=== PATIENT | male | born 1950 | race Caucasian/White ===

== ENCOUNTER → 2016-11-07 | Day surgery (SDC) | payer MEDICARE ==
[~2016-11-07] MED LIST: ACETAMINOPHEN/HYDROcodone 325 MG/5 MG TAB ONE; IBUP600 PO; LACTATED RINGER'S 1000 ML INJ 1,000 ML ONE; LASI20TA PO; LORTA5 PO; LOSA25TA31 PO; MIDAZOLAM HCL 2 MG/2 ML VIAL ONE; MOBI15TA PO; PROPOFOL 200 MG/20 ML AMP IV ONE; TAMS0.4C67 PO; TRIAMCINOLONE ACETONIDE 40 MG/ML VIAL ONE; ceFAZolin INJ 1,000 MG VIAL ONE
--- NOTE | 2016-11-07 11:26 | TN ---
cc: CORONA VILA M.D. DATE OF SURGERY: November 07, 2016 PREOPERATIVE DIAGNOSIS Left knee internal derangement. POSTOPERATIVE DIAGNOSIS Left knee patellofemoral compartment moderate osteoarthritis, chondromalacia. PROCEDURE Left knee arthroscopic surgery - chondroplasty shaving articular surface patellofemoral compartment. SURGEON Corona Vila MD INTERIOR DESIGN PRINCIPAL MARLENE Spain SPECIMEN None. ESTIMATED BLOOD LOSS Minimum. COMPLICATIONS None. ANESTHESIA General. DRAIN None. TOURNIQUET TIME 13-minute at 250 mmHg. CONDITION Stable. PLAN OF ACTIVITY Per orders. PROCEDURE My veterinary assistant technician MARLENE Spain was present for the entire surgical case. She was medically necessary for the entire case because of the complexity of the case and to facilitate the performance of the procedure. The ACTIVITY DIRECTOR at the back table was not a skill set for this case to manipulate the instruments, e.g., the multiple different types of soft tissue retractors, trial implants, and permanent implants. The patient was brought into the operating room, had satisfactory anesthesia by the Department of Anesthesia. The left lower extremity was prepped and draped in the usual sterile manner. The extremity was exsanguinated by Kg wrap and tourniquet was inflated to 250 mmHg. Routine anterolateral and anterior medial portals were made. Introduction of the arthroscopic instrument was made into the knee joint. The knee was inflated with sterile Ringer's lactated solution. Examination of the knee revealed the following: The patient was found to have normal medial compartment. There is no evidence of medial meniscus tear, normal bearing surfaces of the medial femoral condyle and the medial tibial plateau. Anterior cruciate ligament was found to be intact, no evidence of any anterior cruciate ligament injury or trauma. Lateral compartment showed minimal degenerative changes involving the lateral meniscus. The lateral compartment bearing surface also within normal limits. Patellofemoral compartment revealed the patient to have moderate chondromalacia involving the patella, especially the lateral facet. A chondroplasty shaving of articular surfaces were performed. This was done with the shaver and with the meniscal rongeurs. The wound was then irrigated with copious amounts of sterile Ringer's lactated solution. The knee was injected with 1 cc of Kenalog 40. Arthroscopic instruments were removed. The tourniquet was deflated. The incisions were closed with 3-0 nylon suture. Sterile dressings were applied. The patient tolerated the procedure well and arrived in the recovery room in stable and satisfactory condition. MD JENNIFER Blackman/FARIHA /10:53 AM /10:58 AM
== END | disposition home or self-care (01) ==
LOC: ESDC 08:22
PROVIDERS: ATTEND Orthopaedic Surgery Orthopaedic Surgery of the Spine
DX: M17.12 Unilateral primary osteoarthritis, left knee (principal); M94.262 Chondromalacia, left knee
CPT/HCPCS: 01400; 29877; J0690; J2250; J3010; J3301; J7120

== ENCOUNTER 2017-04-20 09:37 | Emergency (ER) | payer MEDICARE ==
[~2017-04-20] VITALS: Ht 177.8 cm; Wt 110.0 kg
[~2017-04-20 09:37] MED LIST changes: -ACETAMINOPHEN/HYDROcodone 325 MG/5 MG TAB ONE; -LACTATED RINGER'S 1000 ML INJ 1,000 ML ONE; -MIDAZOLAM HCL 2 MG/2 ML VIAL ONE; -PROPOFOL 200 MG/20 ML AMP IV ONE; -TRIAMCINOLONE ACETONIDE 40 MG/ML VIAL ONE; -ceFAZolin INJ 1,000 MG VIAL ONE
[2017-04-20 09:42] VITALS: BP 146/87; PULSE 75; RESP 16; TEMP 97.4; O2SAT 96
[2017-04-20] MEDS ORDERED: TIMO0.255 RIGHT EYE (09:53)
[2017-04-20] MEDS ORDERED: FURO1TAB62 PO (09:53)
[2017-04-20] MEDS ORDERED: LOSA50TA PO (09:53)
[2017-04-20] MEDS ORDERED: MELO-1 PO (09:53)
[2017-04-20] MEDS ORDERED: LATA0.002 EACH EYE (09:54)
[2017-04-20] MEDS ORDERED: TIMO0.5S5 EACH EYE (09:54)
--- NOTE | 2017-04-20 10:07 | PD ---
HPI . Right flank pain Chief Complaint: Flank/Kidney Pain Time Seen by Provider: 09:55 Travel History International Travel<30 days: No Contact w/Intl Traveler<30days: No Traveled to known affect area: No History of Present Illness HPI Presents with about a 2 to three-day history of right flank pain. His pain has waxed and waned. He can range anywhere from a 2/10 to a 7/10. He has not noted any modifying factors. He states that it feels like previous kidney stone. He denies any associated symptoms such as diaphoresis, nausea or urinary tract symptoms. PFSH Past Medical History Arthritis: Yes Diminished Hearing: No Glaucoma: Yes Genitourinary: Yes (bladder stones) Hypertension: Yes Kidney Stones: Yes Influenza Vaccination: Yes Past Surgical History Appendectomy: Yes Cholecystectomy: Yes Other Surgery: Yes (removal of bladder stones) Social History Alcohol Use: Yes (occas beer) Tobacco Use: Yes (ecig hx of smoking cigs quit in 2008) Substance Use: No Allergies-Medications (Allergen,Severity, Reaction): Coded Allergies: No Known Allergies (Unverified , 04/20/17) Reported Meds & Prescriptions Reported Meds & Active Scripts Active Reported Timoptic Opth Drops (Timolol Opth Drops) 0.5 % Soln 1 Drop EACH EYE BID Latanoprost Opth Drops (Latanoprost) 0.005% Drops 1 Drop EACH EYE HS Refrigerate until opened. Meloxicam 15 Mg Tab 15 Mg PO DAILY Losartan (Losartan Potassium) 50 Mg Tab 50 Mg PO DAILY Lasix (Furosemide) 20 Mg Tab 20 Mg PO DAILY Review of Systems Except as stated in HPI: all other systems reviewed are Neg General / Constitutional: No: Fever, Chills Gastrointestinal: No: Nausea, Vomiting, Diarrhea Genitourinary: Positive: Flank Pain, No: Urgency, Frequency, Dysuria, Hematuria Physical Exam Narrative GENERAL: Awake and alert and in no acute distress. SKIN: Warm and dry. HEAD: Atraumatic. Normocephalic. EYES: Pupils equal and round. ENT: No nasal bleeding or discharge. Mucous membranes pink and moist. NECK: Trachea midline. CARDIOVASCULAR: Regular rate and rhythm. RESPIRATORY: No accessory muscle use. GASTROINTESTINAL: Abdomen soft. No CVA tenderness. No abdominal tenderness. Normal bowel sounds. MUSCULOSKELETAL: No obvious deformities. No edema. NEUROLOGICAL: Awake and alert. No obvious cranial nerve deficits. Motor grossly within normal limits. Normal speech. PSYCHIATRIC: Appropriate mood and affect; insight and judgment normal. Data Data Last Documented VS Vital Signs Date Time Temp Pulse Resp B/P (MAP) Pulse Ox O2 Delivery O2 Flow Rate FiO2 04/20/17 10:34 77 18 155/88 (110) 100 Room Air 04/20/17 09:42 97.4 Orders Orders Ua Includes Microscopic (04/20/17 10:01) Ct Abd/Pel W/O Iv Contrast (04/20/17 10:01) Ondansetron Inj (Zofran Inj) (04/20/17 10:15) Sodium Chloride 0.9% Flush (Ns Flush) (04/20/17 10:15) Morphine Inj (Morphine Inj) (04/20/17 10:15) Sodium Chlor 0.9% 1000 Ml Inj (Ns 1000 M (04/20/17 10:15) Labs Laboratory Tests Test 04/20/17 10:00 Urine Collection Type CLEAN CATCH Urine Color STRAW Urine Turbidity CLEAR Urine pH 5.0 Urine Specific [place] 1.009 Urine Protein NEG mg/dL Urine Glucose (UA) NEG mg/dL Urine Ketones NEG mg/dL Urine Occult Blood NEG Urine Nitrite NEG Urine Bilirubin NEG Urine Leukocyte Esterase NEG Urine Squamous Epithelial Cells 0-5 /hpf MDM Medical Decision Making Medical Screen Exam Complete: Yes Emergency Medical Condition: Yes Medical Record Reviewed: Yes (patient was seen here in March 2016 with similar symptoms. He was found to have a 5 mm proximal right ureteral stone with associated hydroureter ureter and hydronephrosis.) Differential Diagnosis Differential diagnosis of flank pain includes but is not limited to kidney stone , pyelonephritis, musculoskeletal pain, PE Narrative Course Patient presents with a 2-3 day history of flank pain which feels similar to previous kidney colic. I suspect that he has a kidney stone again today. IV access has been obtained. He will be given morphine and Zofran. He will also be given a fluid bolus. UA and CT are pending. UA is neg. CT>>The right kidney is significant for a punctate nonobstructing stone identified within the lower pole. The previously noted right-sided ureteral stone is no longer present and the dilation of the right ureter has completely resolved. The left kidney is significant for a small hyperdense cyst. No evidence of hydronephrosis. The etiology of this patient's flank pain is undetermined. However, no significant etiology is suspected. The history, exam, diagnostic testing, and current condition do not suggest any significant pathology to warrant further testing, continued ED treatment, admission, or surgical evaluation at this point. The patient's condition is stable and appropriate for discharge. Diagnosis Primary Impression: Right flank pain Patient Instructions: General Instructions, Narcotic given in the ED Med/Other Pt SpecificInfo: Prescription(s) given Scripts Cyclobenzaprine (Flexeril) 10 Mg Tab 10 MG PO TID for Muscle Spasm, #90 TAB 0 Refills Prov: Elly Martines MD 04/20/17 Tramadol (Tramadol) 50 Mg Tab 50 MG PO Q4H Y for PAIN, #12 TAB 0 Refills Prov: Elly Martines MD 04/20/17 Disposition: 01 DISCHARGE HOME Condition: Stable Elly Martines MD Apr 20, 2017 10:07
[2017-04-20] MEDS ORDERED: ONDANSETRON HCL 4 MG/2 ML VIAL IVP ONE (10:15)
[2017-04-20] MEDS ORDERED: SODIUM CHLOR 0.9% 1000 ML INJ 1,000 ML IV SCH (10:15)
[2017-04-20] MEDS ORDERED: SODIUM CHLORIDE 0.9% FLUSH 10 ML FLUSH IVF PRN (10:15)
[2017-04-20] MEDS ORDERED: MORPHINE SULFATE 4 MG/ML INJ IV ONE (10:15)
[2017-04-20 10:31] LABS: BLOOD, URINE NEG (NEG); GLUCOSE,URINE NEG (NEG); KETONE, URINE NEG (NEG); METHOD OF COLLECTION CLEAN CATCH; NITRITE,URINE NEG (NEG)
[2017-04-20 10:32] LABS: URINE COLOR STRAW (YELLW/STRAW)
[2017-04-20 10:34] VITALS: BP 155/88; PULSE 77; RESP 18; O2SAT 100
[2017-04-20 10:35] LABS: SQUAMOUS EPITHELIAL CELL URINE 0-5 /hpf (0-5)
--- NOTE | 2017-04-20 10:36 | RADRPT ---
EXAM DATE/TIME: 04/20/2017 10:23 [facility] COMPARISON: CT ABDOMEN & PELVIS W/O CONTRAST, March 27, 2016, 8:23. INDICATIONS : Right abdominal pain. Evaluate for renal calculi. ORAL CONTRAST: No oral contrast ingested. RADIATION DOSE: 24.78 CTDIvol (mGy) MEDICAL HISTORY : Hypertension. Renal calculi. SURGICAL HISTORY : Appendectomy. Cholecystectomy. ENCOUNTER: Initial ACUITY: 2 days PAIN SCALE: 5/10 LOCATION: Right lower quadrant TECHNIQUE: Volumetric scanning of the abdomen and pelvis was performed. Using automated exposure control and ad justment of the mA and/or kV according to patient size, radiation dose was kept as low as reasonably achievable to obtain optimal diagnostic quality images. DICOM format image data is available electro nically for review and comparison. FINDINGS: LOWER LUNGS: There is persistent atelectasis identified within the lung bases. LIVER: Homogeneous density without lesion. There is no dilation of the biliary tree. The patient is status post prior cholecystectomy. SPLEEN: Normal size without lesion. PANCREAS: Within normal limits. KIDNEYS: The right kidney is significant for a punctate nonobstructing stone identified within the lower pole. The previously noted right-sided ureteral stone is no longer present and the dilation of the right u reter has completely resolved. The left kidney is significant for a small hyperdense cyst. No evidenc e of hydronephrosis. ADRENAL GLANDS: Within normal limits. VASCULAR: Scattered atherosclerosis. No evidence of aneurysm. BOWEL/MESENTERY: The stomach, small bowel, and colon demonstrate no acute abnormality. There is no free intraperitone al air or fluid. ABDOMINAL WALL: Within normal limits. RETROPERITONEUM: There is no lymphadenopathy. BLADDER: No wall thickening or mass. REPRODUCTIVE: Prostate is normal size. There is a stable prosthetic calcification present. INGUINAL: There is no lymphadenopathy or hernia. MUSCULOSKELETAL: Within normal limits for patient age. CONCLUSION: Interval passage of a right-sided ureteral stone. There is a residual small right-sided renal stone p resent. No evidence of hydronephrosis.. Radha Reynolds MD on April 20, 2017 at 10:30 Board Certified Radiologist. This report was verified electronically.
[2017-04-20] MEDS ORDERED: CYCL1TAB29 PO (10:44)
[2017-04-20] MEDS ORDERED: TRAM50TA PO (10:44)
[2017-04-20] MEDS ORDERED: TYLETAB34 PO (10:49)
== END 2017-04-20 10:54 | disposition home or self-care (01) ==
LOC: PHED 09:37
DX: R10.9 Unspecified abdominal pain (principal); Z87.891 Personal history of nicotine dependence; M19.90 Unspecified osteoarthritis, unspecified site; I10 Essential (primary) hypertension; Z87.442 Personal history of urinary calculi
CPT/HCPCS: 74176; 81001; 96374; 96375; 99285; J2270; J2405; J7030

== ENCOUNTER → 2017-10-22 | Outpatient (CLI) | payer MEDICARE ==
[~2017-10-22] MED LIST changes: +CYCL10TA PO; +FURO1TAB62 PO; -IBUP600 PO; -LASI20TA PO; +LATA0.002 EACH EYE; -LORTA5 PO; -LOSA25TA31 PO; +LOSA50TA PO; +MELO15TA20 PO; -MOBI15TA PO; -TAMS0.4C67 PO; +TIMO0.5S5 EACH EYE; +TYLETAB34 PO
--- NOTE | 2017-10-23 09:50 | RSPPFT ---
DATE OF PROCEDURE: 10/22/17 COMMENTS: VOLUMES DYNAMIC: FVC mildly reduced; FEV1 moderately reduced. STATIC: TLC, FRC mildly reduced; RV normal. FLOWS: FEV1% mildly reduced; FEF 25-75 severely reduced. DIFFUSION: Moderately reduced. FLOW VOLUME LOOP: Pattern of variable intrathoracic airways obstruction with mild restriction. IMPRESSION: Mild to moderate obstructive ventilatory defect with co-existing mild restrictive defect and a moderate reduction in diffusion. Airways resistance is increased. There is minimal improvement post-bronchodilator.
== END ==
LOC: HRSP 12:24
PROVIDERS: ATTEND Internal Medicine
DX: J44.9 Chronic obstructive pulmonary disease, unspecified (principal)
CPT/HCPCS: 94060; 94618; 94726; 94729; 95012

== ENCOUNTER 2018-06-29 15:34 | Inpatient (IN) ==
[2018-06-29 18:10] LABS: Baso # (Auto) 0.2 th/mm3 (0.0-0.2); Baso % (Auto) 1.9 % (0.0-2.0); Eos # (Auto) 0.2 th/mm3 (0.0-0.4); Eos % (Auto) 1.4 % (0.0-4.0); Hematocrit 41.2 % (39.0-51.0); Hemoglobin 14.1 gm/dL (13.0-17.0); Lymph # (Auto) 1.2 th/mm3 (1.0-4.8); Lymph % (Auto) 10.4 % (9.0-44.0); Mean Corpuscular HGB Conc 34.3 % (32.0-36.0); Mean Corpuscular Hemoglobin 31.7 pg (27.0-34.0); Mean Corpuscular Volume 92.2 fL (80.0-100.0); Mean Platelet Volume 8.4 fL (7.0-11.0); Mono # (Auto) 0.9 th/mm3 (0.0-0.9); Mono % (Auto) 7.7 % (0.0-8.0); Neut # (Auto) 8.6 th/mm3 (1.8-7.7); Neut % (Auto) 78.6 % (16.0-70.0); Platelet Count 276 th/mm3 (150-450); Red Blood Count 4.46 mil/mm3 (4.50-5.90); Red Cell Distribution Width 13.1 % (11.6-17.2); White Blood Count 11.1 th/mm3 (4.0-11.0)
[2018-06-29 18:18] LABS: Chloride 101 meq/L (98-107); Potassium 4.3 meq/L (3.5-5.1); Sodium 135 meq/L (136-145)
[2018-06-29 18:21] LABS: Albumin 3.5 g/dL (3.4-5.0); Anion Gap 8 meq/L (5-15); Calcium 9.7 mg/dL (8.5-10.1); Carbon Dioxide 25.8 meq/L (21.0-32.0); Glucose,Random 98 mg/dL (74-106); Prothrombin Time 10.4 sec (9.8-11.6)
[2018-06-29 18:22] LABS: Blood Urea Nitrogen 21 mg/dL (7-18)
[2018-06-29] MEDS ORDERED: Acetaminophen 325 MG Tablet PO ONE (18:22)
[2018-06-29 18:24] LABS: Alanine Aminotransferase 43 U/L (12-78)
[2018-06-29] MEDS ORDERED: Vancomycin Inj 1,000 MG in Sodium Chlor 0.9% Inj 250 ML IV.SIG ONE (18:24)
[2018-06-29 18:25] LABS: Aspartate Aminotransferase 36 U/L (15-37); Glomerular Filtration Rate 75 mL/min (>89)
[2018-06-29 18:26] LABS: Total Protein 8.3 g/dL (6.4-8.2)
[2018-06-29 18:27] LABS: Alkaline Phosphatase 98 U/L (45-117)
[2018-06-29] MEDS ORDERED: Tetanus/Diphtheria Toxoid Adult Vaccine Inj 0.5 ML Vial IM ONE (18:38)
--- NOTE | 2018-06-29 18:38 | ED ---
HPI General Chief complaint: Skin/Abscess/Foreign Body Stated complaint: boil on left buttocks Time Seen by Provider: 06/29/18 17:53 Source: patient Mode of arrival: ambulatory Limitations: no limitations History of Present Illness HPI narrative: Patient is a 67-year-old male who presents to the emergency room with complaints of left-sided buttocks abscess. Patient reports that 2 days ago , he noticed a bump on his left buttocks, patient reports that he has been having fevers and chills with the symptoms. Patient reports that today, he noticed that the bump got much bigger and has been draining some fluid. Reports low grade fevers. Patient reports that his tetanus is not up to date. Related Data Home Medications Medication Instructions Recorded Confirmed furosemide [Lasix] 20 mg PO DAILY 06/29/18 06/29/18 latanoprost 1 drp OPHTHALMIC (EYE) QPM 06/29/18 06/29/18 losartan 50 mg PO DAILY 06/29/18 06/29/18 meloxicam 15 mg PO DAILY 06/29/18 06/29/18 red yeast rice 1,200 mg PO DAILY 06/29/18 06/29/18 vitamins A,C,U-njsw-nurbcd 2 tab PO BID 06/29/18 06/29/18 [PreserVision AREDS] Allergies Allergy/AdvReac Type Severity Reaction Status Date / Time tramadol Allergy Severe Restlessnes Verified 06/29/18 15:53 s Review of Systems ROS: all other systems reviewed are negative [facility] Medical History Medical History Cataract (Acute) Glaucoma (Acute) HTN (hypertension) (Acute) Hemorrhoids (Acute) Surgical History Surgical History History of cholecystectomy (Acute) Previous back surgery (Acute) Social History Social History Substance History: No History of Abuse Smoking Status: Former smoker Tobacco Type: E-Cigarettes How Often Do You Have a Drink Containing Alcohol: Never Recent Travel in [facility] within the Last 8 Weeks: No Recent Out of Country Travel within the Last 8 Weeks: No Immunization History Tetanus Immunization: Unsure Exam Narrative Exam Narrative: GENERAL: Moderate distress SKIN: Focused skin assessment warm/dry. HEAD: Atraumatic. Normocephalic. EYES: Pupils equal and round. No scleral icterus. No injection or drainage. ENT: No nasal bleeding or discharge. Mucous membranes pink and moist. NECK: Trachea midline. No JVD. CARDIOVASCULAR: Regular rate and rhythm. No murmur appreciated. RESPIRATORY: No accessory muscle use. Clear to auscultation. Breath sounds equal bilaterally. GASTROINTESTINAL: Abdomen soft, non-tender, nondistended. Hepatic and splenic margins not palpable. Exam performed with RN at bedside, patient with an 8x12cm non fluctuant abscess with cellulitis to left medial buttocks MUSCULOSKELETAL: No obvious deformities. No clubbing. No cyanosis. No edema. NEUROLOGICAL: Awake and alert. No obvious cranial nerve deficits. Motor grossly within normal limits. Normal speech. PSYCHIATRIC: Appropriate mood and affect; insight and judgment normal. Course Initial Documented Vital Signs Temperature 98.8 F 06/29/18 15:50 Pulse Rate 88 06/29/18 15:50 Respiratory Rate 18 06/29/18 15:50 Blood Pressure 157/82 H 06/29/18 15:50 Pulse Oximetry 98 06/29/18 15:50 Last Documented Vital Signs Temperature 100.4 F H 06/29/18 17:18 Pulse Rate 97 H 06/29/18 17:18 Respiratory Rate 18 06/29/18 15:50 Blood Pressure 145/86 H 06/29/18 17:18 Pulse Oximetry 98 06/29/18 17:18 Sign Out Sign Out Data: Patient Sign Out occurred on 06/29/18 at 19:51. Patient's care was discussed, and care was transferred from Elizabeth Marrero to Lucy Mckay MD. Sign Out Comment: patient pending ct as well as labs and admission Last updated by Elizabeth Marrero at 06/29/18 19:09 Post-Handoff Eval: Accepted in transfer of care from Dr. Marrero Medical Decision Making MDM Narrative Medical decision making narrative: During the course of the patients emergency department visit, the patients history, examination, and differential diagnosis were reviewed with the patient. The patient was placed on a patient monitor with oximetry and frequent blood pressure monitoring. The patient had an IV access obtained and blood work sent for analysis. The patient was initially provided IVF, IV Levaquin, IV vancomycin as well as IV Flagyl The patients laboratory studies were reviewed and remarkable for: WBC 11.1, hemoglobin 14.1, hematocrit 41.2, platelets 276 35, potassium 4.3, chloride 101, BUN 21, creatinine 0.99, glucose 98 Lactic acid is 1.6 Patient accepted in transfer of care for follow up pending CT and planned admission;CT resulted no abscess, findings c/w cellulitis --call placed to Dr Jordan accepts for admission for sepsis cellulitis ongoing IV antibiotics Medical Screen Exam Complete: Yes Emergency Medical Condition: Yes Differential Diagnosis Differential Diagnosis: Perirectal abscess, abscess with cellulitis, sepsis Medical Records Medical records reviewed: Yes I reviewed the patient's medical records. Lab Data Lab results reviewed: Yes I reviewed the patient's lab results. Result diagrams: 06/29/18 17:41 06/29/18 17:41 Lab Results 06/29/18 06/29/18 06/29/18 Range/Units 17:41 17:41 17:41 CBC w Diff Slide review pending WBC 11.1 H (4.0-11.0) th/mm3 RBC 4.46 L (4.50-5.90) mil/mm3 Hgb 14.1 (13.0-17.0) gm/dL Hct 41.2 (39.0-51.0) % MCV 92.2 (80.0-100.0) fL MCH 31.7 (27.0-34.0) pg MCHC 34.3 (32.0-36.0) % RDW 13.1 (11.6-17.2) % Plt Count 276 (150-450) th/mm3 MPV 8.4 (7.0-11.0) fL Neut % (Auto) 78.6 H (16.0-70.0) % Lymph % (Auto) 10.4 (9.0-44.0) % Dukes % (Auto) 7.7 (0.0-8.0) % Eos % (Auto) 1.4 (0.0-4.0) % Baso % (Auto) 1.9 (0.0-2.0) % Neut # (Auto) 8.6 H (1.8-7.7) th/mm3 Lymph # (Auto) 1.2 (1.0-4.8) th/mm3 Dukes # (Auto) 0.9 (0.0-0.9) th/mm3 Eos # (Auto) 0.2 (0.0-0.4) th/mm3 Baso # (Auto) 0.2 (0.0-0.2) th/mm3 WBC Differential . Diff Scan Auto diff confirmed Differential Comment . Platelet Estimate Normal (Normal) Platelet Morphology Normal (Normal) PT 10.4 (9.8-11.6) sec INR 1.0 Ratio Sodium 135 L (136-145) meq/L Potassium 4.3 (3.5-5.1) meq/L Chloride 101 (98-107) meq/L Carbon Dioxide 25.8 (21.0-32.0) meq/L Anion Gap 8 (5-15) meq/L BUN 21 H (7-18) mg/dL Creatinine 0.99 (0.60-1.30) mg/dL Estimated GFR 75 L (>89) mL/min Random Glucose 98 (74-106) mg/dL Lactic Acid (0.4-2.0) mmol/L Calcium 9.7 (8.5-10.1) mg/dL Total Bilirubin 0.5 (0.2-1.0) mg/dL AST 36 (15-37) U/L ALT 43 (12-78) U/L Alkaline Phosphatase 98 (45-117) U/L Total Protein 8.3 H (6.4-8.2) g/dL Albumin 3.5 (3.4-5.0) g/dL Urine Color (Yellw/Straw) Urine Clarity (Clear) Urine pH (5.0-8.5) Ur Specific [place] (1.002-1.035) Urine Protein (Neg-Trace) mg/dL Urine Glucose (UA) (Negative) mg/dL Urine Ketones (Negative) mg/dL Urine Occult Blood (Negative) Urine Nitrate (Negative) Urine Bilirubin (Negative) Urine Urobilinogen (Less than 2) mg/dL Ur Leukocyte Esterase (Negative) Urine RBC (0-3) /hpf Urine WBC (0-5) /hpf Ur Squamous Epith Cells (0-5) /hpf Calcium Oxalate Crystal (None) /hpf Urine Mucus (Occasional) /lpf Micro UA Comment Ur Microscopic Review Urine Culture Comments 06/29/18 06/29/18 Range/Units 17:41 19:00 CBC w Diff WBC (4.0-11.0) th/mm3 RBC (4.50-5.90) mil/mm3 Hgb (13.0-17.0) gm/dL Hct (39.0-51.0) % MCV (80.0-100.0) fL MCH (27.0-34.0) pg MCHC (32.0-36.0) % RDW (11.6-17.2) % Plt Count (150-450) th/mm3 MPV (7.0-11.0) fL Neut % (Auto) (16.0-70.0) % Lymph % (Auto) (9.0-44.0) % Dukes % (Auto) (0.0-8.0) % Eos % (Auto) (0.0-4.0) % Baso % (Auto) (0.0-2.0) % Neut # (Auto) (1.8-7.7) th/mm3 Lymph # (Auto) (1.0-4.8) th/mm3 Dukes # (Auto) (0.0-0.9) th/mm3 Eos # (Auto) (0.0-0.4) th/mm3 Baso # (Auto) (0.0-0.2) th/mm3 WBC Differential Diff Scan Differential Comment Platelet Estimate (Normal) Platelet Morphology (Normal) PT (9.8-11.6) sec INR Ratio Sodium (136-145) meq/L Potassium (3.5-5.1) meq/L Chloride (98-107) meq/L Carbon Dioxide (21.0-32.0) meq/L Anion Gap (5-15) meq/L BUN (7-18) mg/dL Creatinine (0.60-1.30) mg/dL Estimated GFR (>89) mL/min Random Glucose (74-106) mg/dL Lactic Acid 1.6 (0.4-2.0) mmol/L Calcium (8.5-10.1) mg/dL Total Bilirubin (0.2-1.0) mg/dL AST (15-37) U/L ALT (12-78) U/L Alkaline Phosphatase (45-117) U/L Total Protein (6.4-8.2) g/dL Albumin (3.4-5.0) g/dL Urine Color Yellow (Yellw/Straw) Urine Clarity Clear (Clear) Urine pH 6.0 (5.0-8.5) Ur Specific [place] 1.025 (1.002-1.035) Urine Protein Trace (Neg-Trace) mg/dL Urine Glucose (UA) Negative (Negative) mg/dL Urine Ketones Negative (Negative) mg/dL Urine Occult Blood Negative (Negative) Urine Nitrate Negative (Negative) Urine Bilirubin Negative (Negative) Urine Urobilinogen 0.2 (Less than 2) mg/dL Ur Leukocyte Esterase Negative (Negative) Urine RBC 0-3 (0-3) /hpf Urine WBC 0-5 (0-5) /hpf Ur Squamous Epith Cells 0-5 (0-5) /hpf Calcium Oxalate Crystal Few H (None) /hpf Urine Mucus Moderate H (Occasional) /lpf Micro UA Comment Culture not ind Ur Microscopic Review Microscopic reviewed Urine Culture Comments Culture not ind Imaging Data Radiologist's impression: Pelvis CT 06/29/18 18:22 CONCLUSION: Left buttock cellulitis without abscess. Discharge Plan Discharge Disposition Patient Disposition: 30 Still Patient Discharge Condition Condition: Stable Discharge Details Diagnosis: Cellulitis and abscess of left lower extremity Physicians Team ED Provider: Lucy Mckay Primary Care Provider: William Durán Attending Provider: Delon Jordan ED Status: Admitted Patient
[2018-06-29 18:41] LABS: Platelet Estimate Normal (Normal); Platelet Morphology Normal (Normal)
[2018-06-29] MEDS ORDERED: Morphine Inj 4 MG/ML Vial IV.PUSH ONE (18:52)
[2018-06-29 19:27] LABS: Bilirubin,Urine Negative (Negative); Clarity,Urine Clear (Clear); Color,Urine Yellow (Yellw/Straw); Glucose,Urine (UA) Negative (Negative); Leukocyte Esterase,Urine Negative (Negative); Nitrite,Urine Negative (Negative); Specific Gravity,Urine 1.025 (1.002-1.035); Urobilinogen,Urine 0.2 mg/dL (Less than 2)
--- NOTE | 2018-06-29 19:28 | CT ---
EXAM DATE: 06/29/2018 7:08 PM EST AGE/SEX: 67 years / Male INDICATIONS: Left buttock abscess. CLINICAL DATA: This is the patient's initial encounter. Patient reports that signs and symptoms have been present for 2 days and indicates a pain score of 10/10. MEDICAL/SURGICAL HISTORY: Hypertension. Cholecystectomy. Back surgery. RADIATION DOSE: 20.90 CTDI (mGy) COMPARISON: [facility], CT ABDOMEN & PELVIS W/O CONTRAST, 04/20/2017. . TECHNIQUE: Multiple contiguous helical axial images were obtained through pelvis following bolus inf usion of 75 ml Omnipaque 350 (iohexol) nonionic water-soluble contrast as a single exam dose. Imag es were obtained using multiple row detector helical technique. . Using automated exposure control an d adjustment of the mA and/or kV according to patient size, radiation dose was kept as low as reasona apolonia achievable to obtain optimal diagnostic quality images. DICOM format image data is available henri ctronically for review and comparison. FINDINGS: Broad area of subcutaneous edema involves the left buttock, primarily medially. There is thickening a nd edema of the overlying skin. No organized or drainable fluid is demonstrated. No acute abnormalities are demonstrated in the pelvic cavity. Diverticulosis is seen of the sigmoid c olon without diverticulitis. The bony pelvis is intact and has normal morphology. 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 CONCLUSION: Left buttock cellulitis without abscess. Electronically signed by: Benny Edouard MD 06/29/2018 7:27 PM EST
[2018-06-29 19:35] LABS: Calcium Oxalate Crystals,Urine Few /hpf; Mucus,Urine Moderate /lpf (Occasional); RBC,Urine 0-3 /hpf (0-3); Squamous Epithelial Cell,Urine 0-5 /hpf (0-5); WBC,Urine 0-5 /hpf (0-5)
[2018-06-29] MEDS ORDERED: Bisacodyl 10 MG Supp RECTAL PRN (19:42)
[2018-06-29] MEDS ORDERED: Vancomycin Consult Pharmacy OTHER PRN (20:00)
[2018-06-29] MEDS ORDERED: Morphine Sulfate Inj 2 MG/ML Vial IV.PUSH PRN (21:49)
[2018-06-29] MEDS: Heparin - SQ 10,000 UNITS/ML Vial SQ SCH (22:24)
[2018-06-29] MEDS: Vancomycin Inj 2,000 MG in Sodium Chlor 0.9% Inj 500 ML IV.SIG SCH (22:25)
[2018-06-29] MEDS: Latanoprost 0.005% Opth Drops 2.5 ML Bottle EACH EYE SCH (22:25)
[2018-06-30 06:50] LABS: Baso % (Auto) 0.5 % (0.0-2.0); Eos # (Auto) 0.1 th/mm3 (0.0-0.4); Eos % (Auto) 1.8 % (0.0-4.0); Hematocrit 36.2 % (39.0-51.0); Hemoglobin 11.9 gm/dL (13.0-17.0); Lymph # (Auto) 0.7 th/mm3 (1.0-4.8); Lymph % (Auto) 8.9 % (9.0-44.0); Mean Corpuscular HGB Conc 32.8 % (32.0-36.0); Mean Corpuscular Hemoglobin 31.4 pg (27.0-34.0); Mean Corpuscular Volume 95.8 fL (80.0-100.0); Mean Platelet Volume 8.3 fL (7.0-11.0); Mono # (Auto) 0.7 th/mm3 (0.0-0.9); Mono % (Auto) 8.7 % (0.0-8.0); Neut # (Auto) 6.5 th/mm3 (1.8-7.7); Neut % (Auto) 80.1 % (16.0-70.0); Platelet Count 227 th/mm3 (150-450); Red Blood Count 3.78 mil/mm3 (4.50-5.90); Red Cell Distribution Width 12.7 % (11.6-17.2)
[2018-06-30 06:58] LABS: Chloride 104 meq/L (98-107); Potassium 3.9 meq/L (3.5-5.1); Sodium 139 meq/L (136-145)
[2018-06-30 07:35] LABS: Alanine Aminotransferase 229 U/L (12-78); Albumin 2.7 g/dL (3.4-5.0); Alkaline Phosphatase 119 U/L (45-117); Anion Gap 7 meq/L (5-15); Aspartate Aminotransferase 165 U/L (15-37); Blood Urea Nitrogen 15 mg/dL (7-18); Calcium 9.1 mg/dL (8.5-10.1); Carbon Dioxide 27.6 meq/L (21.0-32.0); Glomerular Filtration Rate Greater Than 89 mL/min (>89); Glucose,Random 132 mg/dL (74-106); Total Protein 6.4 g/dL (6.4-8.2)
--- NOTE | 2018-06-30 08:16 | P.HP ---
History of Present Illness Primary Care Physician: William Durán MD Chief Complaint: Left buttock area abscess, pain History of Present Illness: Mr. Pedro is a pleasant 67-year-old male with a history of hypertension who presented to the emergency department on 06/29/2018 due to left- sided buttock abscess, swelling. Patient reports onset of his symptoms on 2017. He reports fever around 100 F and chills as well. He did notice some drainage at home. Denies any chest pain, shortness of breath, abdominal pain, cough. Denies any changes in bowel or bladder habits. Past medical history: Hypertension, glaucoma, hemorrhoids, cataract Past surgical history: Cataract surgery, cholecystectomy, kidney stone removal Social history: Patient uses E cigarettes and denies using alcohol or illicit drugs. Family history: Mother had breast cancer. Inpatient Certification: I certify that the inpatient services were ordered in accordance with Medicare regulations governing the order. This includes certification that hospital inpatient services are reasonable and necessary and in the case of services not specified as inpatient-only under 42 CFR 419.22(n), that they are appropriately provided as inpatient services in accordance to with the 2-midnight benchmark under 43 CFR 412.3(e) Estimated Total Length of Stay (Days): 3 Plans for Post Hospital Care: Not yet determined Review of Systems All other systems reviewed negative except as stated in [facility] - History History Provided By: Patient - Medical History Medical History: Medical History (Last Reviewed 06/30/18 @ 09:31 by Shashi Jansen DO) Cataract Glaucoma HTN (hypertension) Hemorrhoids - Surgical History Surgical History: Surgical History (Last Reviewed 06/30/18 @ 09:31 by Shashi Jansen DO) History of cholecystectomy Previous back surgery - Social History I have reviewed the patient's Social History: Yes - Tobacco History Second Hand Smoke Exposure: No Tobacco Use In Past 30 Days: Yes Smoking Status: Former smoker Tobacco Type: E-Cigarettes - Alcohol History How Often Do You Have a Drink Containing Alcohol: Never - Substance Use History Substance History: No History of Abuse - Travel History Recent Travel in the [place] Within the Last 8 Weeks: No Recent Travel Out of the Country Within the Last 8 Weeks: No - Immunization History Tetanus Immunization: Unsure Hx Influenza Vaccine This Season: Yes Medications and Allergies Active Medications: Active Medications Al Hydroxide/Mg Hydroxide (Milk Of Roselyn Liq) 30 ml PO Q12H PRN PRN Reason: Mild Constipation Bisacodyl (Dulcolax Supp) 10 mg RECTAL DAILY PRN PRN Reason: SEVERE CONSITIPATION Heparin Sodium (Porcine) (Heparin Inj) 5,000 units SQ Q12H [facility] Last Admin: 06/29/18 22:24 Dose: 5,000 units Vancomycin HCl 2,000 mg/ (Sodium Chloride) 520 mls @ 250 mls/hr IV.SIG Q18H [facility] Last Infusion: 06/30/18 01:27 Dose: Infused Lactulose (Lactulose Liq) 30 ml PO DAILY PRN PRN Reason: SEVERE CONSITIPATION Latanoprost (Xalatan 0.005% Opth Drops) 1 drop EACH EYE [facility] Last Admin: 06/29/18 22:25 Dose: 1 drop Miscellaneous Information ([facility] Ordered Lab Info) 0 each OTHER ONCE ONE Stop: 07/02/18 03:46 Morphine Sulfate (Morphine Inj) 2 mg IV.PUSH Q3H PRN PRN Reason: Pain 1 to 10 Last Admin: 06/29/18 22:25 Dose: 2 mg Pharmacy Profile Note (Vancomycin Consult Pharmacy) 1 each OTHER UNSCH PRN PRN Reason: Pharmacy to dose Sennosides (Senokot) 17.2 mg PO Q12H PRN PRN Reason: Moderate Constipation Sodium Chloride (Ns Flush) 2 ml IV.FLUSH PRN PRN PRN Reason: FLUSH AFTER USING IV ACCESS Allergies Allergy/AdvReac Type Severity Reaction Status Date / Time tramadol Allergy Severe Restlessnes Verified 06/29/18 15:53 s Home Medications Medication Instructions Recorded Confirmed Type furosemide [Lasix] 20 mg PO DAILY 06/29/18 06/29/18 History latanoprost 1 drp OPHTHALMIC (EYE) QPM 06/29/18 06/29/18 History losartan 50 mg PO DAILY 06/29/18 06/29/18 History meloxicam 15 mg PO DAILY 06/29/18 06/29/18 History red yeast rice 1,200 mg PO DAILY 06/29/18 06/29/18 History vitamins A,C,Q-tugs-xkaick 2 tab PO BID 06/29/18 06/29/18 History [PreserVision AREDS] Exam Vital signs: Vital Signs 06/29/18 15:50 06/29/18 17:18 06/29/18 20:00 Temperature 98.8 F 100.4 F H 97.7 F Pulse Rate 88 97 H 88 Respiratory Rate 18 18 Blood Pressure 157/82 H 145/86 H 134/62 Pulse Oximetry 98 98 94 L 06/29/18 20:09 06/30/18 00:00 Temperature 98.6 F 96.5 F L Pulse Rate 76 Respiratory Rate 18 Blood Pressure 111/65 Pulse Oximetry 97 Intake & Output 06/29/18 06/30/18 06/30/18 18:59 06:59 18:59 Intake Total 870 / 870 Output Total 250 / 250 Balance 620 / 620 Weight 101 kg 103.1 kg Intake: IV 770 / 770 Levaquin 750 mg Premix Inj 150 150 / 150 ML @ 100 mls/hr IV.SIG ONCE ONE Rx#:[id number] Vancomycin Inj 2,000 MG In NS 520 / 520 Inj 500 ML @ 250 mls/hr IV.SIG Q18H STORM Rx#:[id number] Flagyl 500 MG Inj 100 ML @ 100 100 / 100 mls/hr IV.SIG ONCE ONE Rx#: [id number] Oral 100 / 100 Output: Urine 250 / 250 Other: Date of Last Bowel Movement 06/29/18 Weight On Admission 103.5 kg Narrative: GENERAL: This is a well-nourished, well-developed patient, in no apparent distress. SKIN: No rashes, ecchymoses or lesions. Warm and dry. HEAD: Atraumatic. Normocephalic. No temporal or scalp tenderness. EYES: Pupils equal round and reactive. No injection or drainage. ENT: Nose without bleeding, purulent drainage or septal hematoma. Airway patent. NECK: Trachea midline. No lymphadenopathy. Supple, nontender, no meningeal signs. CARDIOVASCULAR: Regular rate and rhythm without murmurs, gallops, or rubs. No JVD. RESPIRATORY: Clear to auscultation. Breath sounds equal bilaterally. No wheezes , rales, or rhonchi. GASTROINTESTINAL: Abdomen soft, non-tender, nondistended. No guarding. MUSCULOSKELETAL: Extremities without clubbing, cyanosis, or edema. : There is a large indurated area very painful to palpation, with mild erythema present on the left buttock area. NEUROLOGICAL: Awake and alert. Cranial nerves II through XII intact. No focal neurological deficits. Normal speech. Results - Labs CBC & Chem 7: 06/30/18 05:18 06/30/18 05:18 Labs: Laboratory Results - last 24 hr 06/29/18 06/29/18 06/29/18 17:41 17:41 17:41 CBC w Diff Slide review pending WBC 11.1 H RBC 4.46 L Hgb 14.1 Hct 41.2 MCV 92.2 MCH 31.7 MCHC 34.3 RDW 13.1 Plt Count 276 MPV 8.4 Neut % (Auto) 78.6 H Lymph % (Auto) 10.4 [place] % (Auto) 7.7 Eos % (Auto) 1.4 Baso % (Auto) 1.9 Neut # (Auto) 8.6 H Lymph # (Auto) 1.2 [place] # (Auto) 0.9 Eos # (Auto) 0.2 Baso # (Auto) 0.2 WBC Differential . Diff Scan Auto diff confirmed Differential Comment . Platelet Estimate Normal Platelet Morphology Normal PT 10.4 INR 1.0 Sodium 135 L Potassium 4.3 Chloride 101 Carbon Dioxide 25.8 Anion Gap 8 BUN 21 H Creatinine 0.99 Estimated GFR 75 L Random Glucose 98 Lactic Acid Calcium 9.7 Total Bilirubin 0.5 AST 36 ALT 43 Alkaline Phosphatase 98 Total Protein 8.3 H Albumin 3.5 Urine Color Urine Clarity Urine pH Ur Specific [place] Urine Protein Urine Glucose (UA) Urine Ketones Urine Occult Blood Urine Nitrate Urine Bilirubin Urine Urobilinogen Ur Leukocyte Esterase Urine RBC Urine WBC Ur Squamous Epith Cells Calcium Oxalate Crystal Urine Mucus Micro UA Comment Ur Microscopic Review Urine Culture Comments 06/29/18 06/29/18 06/30/18 17:41 19:00 05:18 CBC w Diff Auto diff final WBC 8.0 RBC 3.78 L Hgb 11.9 L D Hct 36.2 L MCV 95.8 D MCH 31.4 MCHC 32.8 RDW 12.7 Plt Count 227 MPV 8.3 Neut % (Auto) 80.1 H Lymph % (Auto) 8.9 L [place] % (Auto) 8.7 H Eos % (Auto) 1.8 Baso % (Auto) 0.5 Neut # (Auto) 6.5 Lymph # (Auto) 0.7 L [place] # (Auto) 0.7 Eos # (Auto) 0.1 Baso # (Auto) 0.0 WBC Differential . Diff Scan Differential Comment . Platelet Estimate Platelet Morphology PT INR Sodium Potassium Chloride Carbon Dioxide Anion Gap BUN Creatinine Estimated GFR Random Glucose Lactic Acid 1.6 Calcium Total Bilirubin AST ALT Alkaline Phosphatase Total Protein Albumin Urine Color Yellow Urine Clarity Clear Urine pH 6.0 Ur Specific [place] 1.025 Urine Protein Trace Urine Glucose (UA) Negative Urine Ketones Negative Urine Occult Blood Negative Urine Nitrate Negative Urine Bilirubin Negative Urine Urobilinogen 0.2 Ur Leukocyte Esterase Negative Urine RBC 0-3 Urine WBC 0-5 Ur Squamous Epith Cells 0-5 Calcium Oxalate Crystal Few H Urine Mucus Moderate H Micro UA Comment Culture not ind Ur Microscopic Review Microscopic reviewed Urine Culture Comments Culture not ind 06/30/18 05:18 CBC w Diff WBC RBC Hgb Hct MCV MCH MCHC RDW Plt Count MPV Neut % (Auto) Lymph % (Auto) [place] % (Auto) Eos % (Auto) Baso % (Auto) Neut # (Auto) Lymph # (Auto) [place] # (Auto) Eos # (Auto) Baso # (Auto) WBC Differential Diff Scan Differential Comment Platelet Estimate Platelet Morphology PT INR Sodium 139 Potassium 3.9 Chloride 104 Carbon Dioxide 27.6 Anion Gap 7 BUN 15 Creatinine 0.76 Estimated GFR Greater than 89 Random Glucose 132 H Lactic Acid Calcium 9.1 Total Bilirubin 0.6 AST 165 H ALT 229 H Alkaline Phosphatase 119 H Total Protein 6.4 D Albumin 2.7 L D Urine Color Urine Clarity Urine pH Ur Specific [place] Urine Protein Urine Glucose (UA) Urine Ketones Urine Occult Blood Urine Nitrate Urine Bilirubin Urine Urobilinogen Ur Leukocyte Esterase Urine RBC Urine WBC Ur Squamous Epith Cells Calcium Oxalate Crystal Urine Mucus Micro UA Comment Ur Microscopic Review Urine Culture Comments - Imaging Impressions Pelvis CT 06/29/18 18:22 CONCLUSION: Left buttock cellulitis without abscess. Caprini VTE Risk Assessment Caprini VTE Risk Assessment: No/Low Risk (score <= 1) Caprini Risk Assessment Model: Point Value = 1 Point Value = 2 Point Value = 3 Point Value = 5 Age 41-60 Minor surgery BMI > 25 kg/m2 Swollen legs Varicose veins or History of unexplained or recurrent spontaneous Oral contraceptives or hormone replacement Sepsis (< 1 month) Serious lung disease, including pneumonia (< 1 month) Abnormal pulmonary function Acute myocardial infarction Congestive heart failure (< 1 month) History of inflammatory bowel disease Medical patient at bed rest Age 61-74 Arthroscopic surgery Major open surgery (> 45 min) Laparoscopic surgery (> 45 min) Malignancy Confined to bed (> 72 hours) Immobilizing plaster cast Central venous access Age >= 75 History of VTE Family history of VTE Factor V Leiden Prothrombin [id number] Lupus anticoagulant Anticardiolipin antibodies Elevated serum homocysteine Heparin-induced thrombocytopenia Other congenital or acquired thrombophilia Stroke (< 1 month) Elective arthroplasty Hip, pelvis, or leg fracture Acute spinal cord injury (< 1 month) Prophylaxis Regimen: Total Risk Factor Score Risk Level Prophylaxis Regimen 0-1 Low Early ambulation 2 Moderate Order ONE of the following: *Sequential Compression Device (SCD) *Heparin 5000 units SQ BID 3-4 Higher Order ONE of the following medications: *Heparin 5000 units SQ TID *Enoxaparin/Lovenox 40 mg SQ daily (WT < 150 kg, CrCl > 30 mL/min) *Enoxaparin/Lovenox 30 mg SQ daily (WT < 150 kg, CrCl > 10-29 mL/min) *Enoxaparin/Lovenox 30 mg SQ BID (WT < 150 kg, CrCl > 30 mL/min) AND/OR *Sequential Compression Device (SCD) 5 or more Highest Order ONE of the following medications: *Heparin 5000 units SQ TID (Preferred with Epidurals) *Enoxaparin/Lovenox 40 mg SQ daily (WT < 150 kg, CrCl > 30 mL/min) *Enoxaparin/Lovenox 30 mg SQ daily (WT < 150 kg, CrCl > 10-29 mL/min) *Enoxaparin/Lovenox 30 mg SQ BID (WT < 150 kg, CrCl > 30 mL/min) AND *Sequential Compression Device (SCD) Assessment and Plan - Plan Mr. Pedro is a pleasant 67-year-old male with a history of hypertension who presents to the emergency department on 06/29/2018 due to left buttock area abscess. Patient had mild fever as well as chills. He also had drainage as well. Left buttock abscess Continue vancomycin pharmacy to dose. We will consult general surgery for an evaluation. Patient may need I&D. Continue pain management with acetaminophen, Percocet and morphine. Bowel regimen Hypertension Hx of Glaucoma Continue losartan 50 mg p.o. daily, latanoprost eyedrops. Full code. Heparin 5000 unit every 12 hours.
[2018-06-30] MEDS ORDERED: Acetaminophen 325 MG Tablet PO PRN (08:29)
[2018-06-30] MEDS: Heparin - SQ 10,000 UNITS/ML Vial SQ SCH ×2 (08:48→21:48)
[2018-06-30] MEDS: Morphine Sulfate Inj 2 MG/ML Vial IV.PUSH PRN ×2 (13:04→21:48)
--- NOTE | 2018-06-30 15:02 | US ---
EXAM DATE: 06/30/2018 2:41 PM EST AGE/SEX: 67 years / Male INDICATIONS: Left inferior buttock abscess. CLINICAL DATA: This is the patient's initial encounter. Patient reports that signs and symptoms have been present for 4 - 6 days and indicates a pain score of 10/10. MEDICAL/SURGICAL HISTORY: Hypertension. Glaucoma. Cataracts. Cholecystectomy. Back surgery. COMPARISON: [facility], CT PELVIS W CONTRAST, 06/29/2018. . FINDINGS: Examination of the patient's left buttock area demonstrates an echogenic mass measures 4.7 x 1.7 x 1. 1 cm in size. It is mixed in echogenicity not particularly fluid containing. CONCLUSION: 1. Mixed echogenic masslike area most likely phlegmonous infectious process without focal pocket of abscess. Electronically signed by: Melvin Ramos MD 06/30/2018 3:01 PM EST
--- NOTE | 2018-06-30 15:44 | MB ---
cc: Haider Bowser MD DATE: 06/30/2018 CHIEF COMPLAINT: Left buttock abscess, cellulitis. REASON FOR CONSULTATION: Abscess CONSULTING PHYSICIAN: Dr. Jansen. HISTORY OF PRESENT ILLNESS: The patient is a 67-year-old male who presents with several medical issues and complains of left buttock pain. The patient states the initial pain and swelling started approximately 1 week ago, around Friday or and can continued to get worse. He notes the pain started as a small little bite and progressed in size and pain. He states his pain is currently an 8/10; some improvement with pain medication. Initially, it was 2/10 and again has been constant and consistent and progressive. He complains of low-grade fevers 100.8. He denies any nausea, vomiting or change in bowel habits. He has never had this issue before and he came to emergency room for further evaluation including a CT scan showing a cellulitis with induration of left buttock, posterior thigh area. Surgery was consulted for further evaluation. PAST MEDICAL HISTORY: Cataracts, glaucoma, hypertension, hemorrhoids. PAST SURGICAL HISTORY: Cholecystectomy and back surgery. SOCIAL HISTORY: Denies smoking, occasional ETOH use. Denies IVDA. ALLERGIES: TRAMADOL. MEDICATIONS: See electronic medical record. FAMILY HISTORY: Denies diabetes or hypertension. REVIEW OF SYSTEMS: GENERAL: Complains of low-grade fevers. HEENT: Denies eye pain, ear pain. NECK: Denies swelling or pain. LUNGS: Denies cough or wheeze. HEART: Denies palpitations or chest pain. ABDOMEN: Denies nausea or vomiting. GENITOURINARY: Denies dysuria or hematuria. ENDOCRINE: Denies polyuria or polydipsia. INTEGUMENT: Complains of cellulitis. PSYCHIATRIC: Denies any change in mood or sensorium. PHYSICAL EXAMINATION: GENERAL: The patient in no acute distress. VITAL SIGNS: Temperature 98.8, pulse 88, respirations 18, blood pressure 167/82; saturation is 99% on room air. HEENT: Pupils equal, round, reactive. NECK: Supple. Trachea midline. LUNGS: Clear to auscultation, bilateral expansion. HEART: S1, S2; regular. ABDOMEN: Soft, nontender, nondistended. Healed surgical scars. EXTREMITIES: Warm and well perfused. BUTTOCK: Left inferior buttock, posterior proximal thigh induration; scant drainage. Tenderness to palpation, area expanding approximately 12 cm x 4 cm. NEUROLOGIC: GCS 15, 5/5 motor in all extremities. PSYCHIATRIC: Appropriate mood, appropriate judgment. LABORATORY AND DIAGNOSTIC DATA: 1. WBC is 8; admission is 11.1, hemoglobin 11.9, hematocrit 36.2, platelets 227. Sodium 139, potassium 3.9, chloride 104, BUN is 15, creatinine 0.7, glucose 132. 2. CT reviewed by myself showing induration without defined abscess, left posterior thigh, buttock area. ASSESSMENT AND PLAN: Patient a 67-year-old male who presents with a left posterior buttock abscess, initial cellulitis and a slowly transforming into abscess. PLAN: After full clinical work up, patient with the above main issues. At this point, IV antibiotics, pain control. The patient can be on a diet. We will plan for operative intervention including incision and drainage with possible VAC placement on . Discussed with the patient the need for operative intervention; however, the area feels more cellulitic and is not as demarcated as an abscess quite yet. Therefore, I recommend 1-2 days more of IV antibiotic and plan for operative intervention same hospital stay. The patient states he understands and agrees. MD SIMI Michaels/pop , 03:07 PM , 03:19 PM
[2018-06-30] MEDS: Vancomycin Inj 2,000 MG in Sodium Chlor 0.9% Inj 500 ML IV.SIG SCH (16:02)
[2018-06-30] MEDS: Latanoprost 0.005% Opth Drops 2.5 ML Bottle EACH EYE SCH (21:46)
[2018-07-01] MEDS: Heparin - SQ 10,000 UNITS/ML Vial SQ SCH ×2 (08:27→21:03)
[2018-07-01] MEDS: Morphine Sulfate Inj 2 MG/ML Vial IV.PUSH PRN (08:37)
--- NOTE | 2018-07-01 10:10 | P.PN ---
Subjective Interval history: Follow-up for left buttock abscess. Patient is currently doing well. He is upset because he was told that the surgery would be done today. However according to documentations, surgeon specifically suggested that we should wait and see how he does with antibiotics. Plan for surgery is on , 2017. Patient remains afebrile. He complains of persistent pain. Physical Exam Vital signs: Vital Signs 06/30/18 12:00 06/30/18 13:03 06/30/18 16:55 Temperature 96.7 F L Pulse Rate 60 Respiratory Rate 18 18 Blood Pressure 127/61 Pulse Oximetry 96 06/30/18 18:09 06/30/18 20:00 07/01/18 00:00 Temperature 99.4 F 99.3 F 96.5 F L Pulse Rate 82 67 75 Respiratory Rate 18 Blood Pressure 125/60 120/69 131/81 Pulse Oximetry 99 100 94 L 07/01/18 07:06 07/01/18 08:00 Temperature 97.2 F L Pulse Rate 67 Respiratory Rate 18 Blood Pressure 126/73 Pulse Oximetry 96 Intake & Output 06/30/18 07/01/18 07/01/18 18:59 06:59 18:59 Intake Total 520 / 520 1240 / 1240 Output Total 300 / 300 Balance 520 / 520 940 / 940 Weight 105.1 kg Intake: IV 520 / 520 Vancomycin Inj 2,000 MG In NS 520 / 520 Inj 500 ML @ 250 mls/hr IV.SIG Q18H STORM Rx#:[id number] Oral 1240 / 1240 Output: Urine 300 / 300 Other: # Voids 1 Date of Last Bowel Movement 06/29/18 06/29/18 Narrative: GENERAL: This is a well-nourished, well-developed patient, in no apparent distress. SKIN: No rashes, ecchymoses or lesions. Warm and dry. HEAD: Atraumatic. Normocephalic. No temporal or scalp tenderness. EYES: Pupils equal round and reactive. No injection or drainage. ENT: Nose without bleeding, purulent drainage or septal hematoma. Airway patent. NECK: Trachea midline. No lymphadenopathy. Supple, nontender, no meningeal signs. CARDIOVASCULAR: Regular rate and rhythm without murmurs, gallops, or rubs. No JVD. RESPIRATORY: Clear to auscultation. Breath sounds equal bilaterally. No wheezes , rales, or rhonchi. GASTROINTESTINAL: Abdomen soft, non-tender, nondistended. No guarding. MUSCULOSKELETAL: Extremities without clubbing, cyanosis, or edema. : There is a large indurated area very painful to palpation, with mild erythema present on the left buttock area. Significant drainage noted on the bed. NEUROLOGICAL: Awake and alert. Cranial nerves II through XII intact. No focal neurological deficits. Normal speech. Results - Labs CBC & Chem 7: 06/30/18 05:18 06/30/18 05:18 Microbiology 06/29/18 17:41 Blood - Peripheral Aerobic Blood Culture - Preliminary No growth in 1 day 06/29/18 17:41 Blood - Peripheral Anaerobic Blood Culture - Preliminary No growth in 1 day 06/29/18 17:41 Blood - Peripheral Aerobic Blood Culture - Preliminary No growth in 1 day 06/29/18 17:41 Blood - Peripheral Anaerobic Blood Culture - Preliminary No growth in 1 day - Imaging Impressions Soft Tissue Ultrasound 06/30/18 00:00 CONCLUSION: 1. Mixed echogenic masslike area most likely phlegmonous infectious process without focal pocket of abscess. Assessment and Plan - Plan Mr. Pedro is a pleasant 67-year-old male with a history of hypertension who presents to the emergency department on 06/29/2018 due to left buttock area abscess. Patient had mild fever as well as chills. He also had drainage as well. Left buttock abscess Continue vancomycin pharmacy to dose. Appreciate input from general surgery for an evaluation. Probable I&D on 2017. Continue pain management with acetaminophen, Percocet and morphine. Bowel regimen Hypertension Hx of Glaucoma Continue losartan 50 mg p.o. daily, latanoprost eyedrops. Full code. Heparin 5000 unit every 12 hours.
[2018-07-01] MEDS: Vancomycin Inj 2,000 MG in Sodium Chlor 0.9% Inj 500 ML IV.SIG SCH (10:50)
[2018-07-01] MEDS: Docusate Sodium 100 MG Capsule PO SCH ×2 (11:26→21:03)
--- NOTE | 2018-07-01 18:45 | P.PNGS ---
Subjective Interval history: Awake and alert at bedside with many questions about surgery Physical Exam Vital signs: Vital Signs 06/30/18 20:00 07/01/18 00:00 07/01/18 07:06 Temperature 99.3 F 96.5 F L Pulse Rate 67 75 Respiratory Rate 18 18 18 Blood Pressure 120/69 131/81 Pulse Oximetry 100 94 L 07/01/18 08:00 07/01/18 11:42 07/01/18 16:00 Temperature 97.2 F L 98.3 F 97.7 F Pulse Rate 67 72 68 Respiratory Rate 18 Blood Pressure 126/73 132/67 157/74 H Pulse Oximetry 96 96 97 Intake & Output 06/30/18 07/01/18 07/01/18 18:59 06:59 18:59 Intake Total 520 / 520 1240 / 1240 520 / 520 Output Total 300 / 300 Balance 520 / 520 940 / 940 520 / 520 Weight 105.1 kg Intake: IV 520 / 520 520 / 520 Vancomycin Inj 2,000 MG In NS 520 / 520 520 / 520 Inj 500 ML @ 250 mls/hr IV.SIG Q18H STORM Rx#:[id number] Oral 1240 / 1240 Output: Urine 300 / 300 Other: # Voids 1 Date of Last Bowel Movement 06/29/18 06/29/18 Narrative: Alert and awake LEFT buttocks---inferior abscess--- indurated; minimal purulent drainage Results - Labs 07/02/18 05:00 06/30/18 05:18 - Imaging Imaging: ITS Impressions Pelvis CT 06/29/18 18:22 CONCLUSION: Left buttock cellulitis without abscess. Soft Tissue Ultrasound 06/30/18 00:00 CONCLUSION: 1. Mixed echogenic masslike area most likely phlegmonous infectious process without focal pocket of abscess. Assessment and Plan - Assessment (1) Cellulitis and abscess of left lower extremity Code(s): L03.116 - Cellulitis of left lower limb; L02.416 - Cutaneous abscess of left lower limb Status: Acute Plan: 67 year old male with LEFT inferior buttocks abscess -Plan for incision and drainage with possible Wound Vac placement tomorrow with Dr. Bowser at 1500 -NPO after MN -Start NS @ 125 cc at WI -Explained procedure in detail; all questions answered - Attending Attestation patient seen at bedside await for cellulitis to demark and form abscess plan for OR tomorrow discussed detail with patient not available during visit The exam, history, and the medical decision-making described in the above note were completed with the assistance of the mid-level provider. I reviewed and agree with the findings presented. I attest that I had a [id number] encounter with the patient on the same day, and personally performed and documented my assessment and findings in the medical record.
--- NOTE | 2018-07-01 19:10 | ECG ---
Date Performed: 07/01/2018 Time Performed: 00:09:37 PTAGE: 67 years EKG: Sinus rhythm WITH OCCASIONAL SUPRAVENTRICULAR PREMATURE COMPLEXES BORDERLINE ECG PREVIOUS TRACING : 03/27/2016 07.44 Since the previous tracing, no significant change noted DOCTOR: Mynor Lua Interpretating Date/Time 07/01/2018 19:09:30
[2018-07-01] MEDS: Sod Chloride 0.9% Inj 1,000 ML IV.CONT SCH (21:02)
[2018-07-01] MEDS: Latanoprost 0.005% Opth Drops 2.5 ML Bottle EACH EYE SCH (21:03)
[2018-07-02] MEDS ORDERED: VANCOMYCIN TROUGH OTHER ONE (03:45)
[2018-07-02] MEDS: Vancomycin Inj 2,000 MG in Sodium Chlor 0.9% Inj 500 ML IV.SIG SCH (05:07)
[2018-07-02] MEDS: Sod Chloride 0.9% Inj 1,000 ML IV.CONT SCH ×3 (05:08→21:03)
[2018-07-02 06:26] LABS: Baso # (Auto) 0.1 th/mm3 (0.0-0.2); Baso % (Auto) 0.7 % (0.0-2.0); Eos # (Auto) 0.2 th/mm3 (0.0-0.4); Eos % (Auto) 2.1 % (0.0-4.0); Hematocrit 36.6 % (39.0-51.0); Hemoglobin 12.3 gm/dL (13.0-17.0); Lymph # (Auto) 1.1 th/mm3 (1.0-4.8); Mean Corpuscular HGB Conc 33.6 % (32.0-36.0); Mean Corpuscular Hemoglobin 31.5 pg (27.0-34.0); Mean Corpuscular Volume 93.9 fL (80.0-100.0); Mean Platelet Volume 8.5 fL (7.0-11.0); Mono # (Auto) 0.6 th/mm3 (0.0-0.9); Mono % (Auto) 7.6 % (0.0-8.0); Neut # (Auto) 6.2 th/mm3 (1.8-7.7); Neut % (Auto) 76.6 % (16.0-70.0); Platelet Count 274 th/mm3 (150-450); Red Cell Distribution Width 13.1 % (11.6-17.2); White Blood Count 8.2 th/mm3 (4.0-11.0)
--- NOTE | 2018-07-02 07:46 | P.PN ---
Subjective Interval history: Follow-up for left buttock abscess. Is currently doing well. Denies any chest pain, shortness of breath, fever or chills. He continues to have pain but managed well with current pain medications. He is a scheduled for surgery this afternoon. Physical Exam Vital signs: Vital Signs 07/01/18 08:00 07/01/18 11:42 07/01/18 16:00 Temperature 97.2 F L 98.3 F 97.7 F Pulse Rate 67 72 68 Respiratory Rate 18 18 18 Blood Pressure 126/73 132/67 157/74 H Pulse Oximetry 96 96 97 07/01/18 20:00 07/02/18 00:00 Temperature 98.5 F 96.9 F L Pulse Rate 72 71 Respiratory Rate 18 Blood Pressure 119/61 135/66 Pulse Oximetry 95 97 Intake & Output 07/01/18 07/02/18 07/02/18 18:59 06:59 18:59 Intake Total 520 / 520 1215 / 1215 Balance 520 / 520 1215 / 1215 Weight 105.6 kg Intake: IV 520 / 520 1215 / 1215 NS Inj 1,000 ML @ 125 mls/hr IV 1215 / 1215 .CONT .Q8H STORM Rx#:[id number] Vancomycin Inj 2,000 MG In NS 520 / 520 Inj 500 ML @ 250 mls/hr IV.SIG Q18H STORM Rx#:[id number] Other: # Voids 3 Date of Last Bowel Movement 06/29/18 Narrative: GENERAL: Alert, oriented x3, NAD. SKIN: Warm and dry. HEAD: Normocephalic. EYES: No scleral icterus. No injection or drainage. NECK: Supple, trachea midline. No JVD or lymphadenopathy. CARDIOVASCULAR: Regular rate and rhythm without murmurs, gallops, or rubs. RESPIRATORY: Breath sounds equal bilaterally. No accessory muscle use. GASTROINTESTINAL: Abdomen soft, non-tender, nondistended. Left-sided buttock area large abscess with some drainage. MUSCULOSKELETAL: No cyanosis, or edema. BACK: Nontender without obvious deformity. No CVA tenderness. Results - Labs CBC & Chem 7: 07/02/18 05:00 06/30/18 05:18 Laboratory Results - last 24 hr 07/02/18 05:00 CBC w Diff Auto diff final WBC 8.2 RBC 3.90 L Hgb 12.3 L Hct 36.6 L MCV 93.9 MCH 31.5 MCHC 33.6 RDW 13.1 Plt Count 274 MPV 8.5 Neut % (Auto) 76.6 H Lymph % (Auto) 13.0 [place] % (Auto) 7.6 Eos % (Auto) 2.1 Baso % (Auto) 0.7 Neut # (Auto) 6.2 Lymph # (Auto) 1.1 [place] # (Auto) 0.6 Eos # (Auto) 0.2 Baso # (Auto) 0.1 WBC Differential . Differential Comment . Microbiology 06/29/18 17:41 Blood - Peripheral Aerobic Blood Culture - Preliminary No growth in 2 days 06/29/18 17:41 Blood - Peripheral Anaerobic Blood Culture - Preliminary No growth in 2 days 06/29/18 17:41 Blood - Peripheral Aerobic Blood Culture - Preliminary No growth in 2 days 06/29/18 17:41 Blood - Peripheral Anaerobic Blood Culture - Preliminary No growth in 2 days Assessment and Plan - Plan Mr. Pedro is a pleasant 67-year-old male with a history of hypertension who presents to the emergency department on 06/29/2018 due to left buttock area abscess. Patient had mild fever as well as chills. He also had drainage as well. Left buttock abscess Continue vancomycin pharmacy to dose. Appreciate input from general surgery for an evaluation. Probable I&D on 2017. Continue pain management with acetaminophen, Percocet and morphine. Bowel regimen Hypertension Hx of Glaucoma Continue losartan 50 mg p.o. daily, latanoprost eyedrops. Full code. Heparin 5000 unit every 12 hours.
[2018-07-02] MEDS: Docusate Sodium 100 MG Capsule PO SCH ×2 (08:40→21:02)
[2018-07-02] MEDS ORDERED: fentaNYL Citrate Inj 100 MCG/2 ML Ampul ONE (13:38)
[2018-07-02] MEDS ORDERED: Neomycin/Polymyxin G.U. Irrigant 1 ML Ampul ONE (14:21)
[2018-07-02] MEDS ORDERED: Bupivacaine/Epinephrine Inj 0.25% 50 ML Vial ONE (14:22)
[2018-07-02] MEDS ORDERED: Sugammadex Inj 200 MG/2 ML Vial IV.PUSH ONE (14:34)
[2018-07-02] MEDS ORDERED: Artificial Tears Opth Oint 3.5 GM Tube ONE (14:35)
[2018-07-02] MEDS ORDERED: Famotidine PF Inj 20 MG/2 ML Vial ONE (14:38)
[2018-07-02] MEDS ORDERED: Chlorhexidine Gluconate 2% 1 Pack (2 Cloths) TOPICAL ONE (14:41)
[2018-07-02] MEDS ORDERED: Metoprolol Tartrate 25 MG Tablet PO ONE (14:41)
[2018-07-02] MEDS ORDERED: Sodium Chlor 0.9% Inj 500 ML IV.SIG SCH (15:00)
--- NOTE | 2018-07-02 15:27 | P.OP ---
- Preoperative Diagnosis (1) Cellulitis and abscess of left lower extremity - Postoperative Diagnosis (1) Cellulitis and abscess of left lower extremity Procedure: I and D of left posterior thigh with vac Anesthesia: GETA Surgeon: Haider Bowser MD Estimated blood loss (mL): 15 Pathology: other (wound culture) Operation and Findings: abscess
[2018-07-02] MEDS ORDERED: Lidocaine PF 1% Inj 5 ML Syringe OTHER ONE (15:44)
[2018-07-02] MEDS ORDERED: Phenylephrine/NS 1000 MCG/10ML Syringe IV.PUSH ONE (15:44)
[2018-07-02] MEDS ORDERED: Morphine Inj 4 MG/ML Vial ONE (16:29)
--- NOTE | 2018-07-02 16:34 | MP ---
cc: Haider Bowser MD DATE OF OPERATION: 07/02/2018 DATE OF PROCEDURE: 07/12/2018 PREOPERATIVE DIAGNOSIS: Left buttock and posterior thigh abscess. POSTOPERATIVE DIAGNOSIS: Left buttock and posterior thigh abscess. PROCEDURE PERFORMED: Incision and drainage with excisional debridement of skin, soft tissue area of left buttock abscess cavity measuring 2 x 2 x 6 cm with VAC placement. SURGEON: Haider Bowser MD [employer]CR[employer] BUILDING [employer]SEMBLER: None. ANESTHESIA: GETA. IV FLUIDS: See anesthesia sheet. ESTIMATED BLOOD LOSS: 15 mL. DRAINS: Hemovac. COMPLICATIONS: None. SPECIMENS: Purulent drainage sent for culture. FINDINGS: Large posterior thigh and buttock abscess with purulent material. INDICATIONS FOR PROCEDURE: The patient is a 67-year-old male who presents with acute onset of left posterior thigh, buttock pain. The patient had this for approximately 1 week and continued to get worse. Noted to have swelling and redness and pain. Therefore, the patient came to the emergency department for evaluation including CT scan showing initial cellulitis. The patient admitted for IV antibiotics and pain control and was scheduled for debridement once fluctuance developed. DESCRIPTION OF PROCEDURE: The patient was taken to the operating suite and placed in supine position. He was prepped and draped in usual sterile fashion after induction of general endotracheal anesthesia. Brief timeout confirmed correct patient, procedure, and surgical site. We were all in agreement with this. Attention first directed to the left posterior buttock area. Noted to have cellulitis with some purulent material. A 15 blade was used to make a 2.5 cm incision. Bovie electrocautery were used to do excisional debridement of skin, soft tissue with necrotic skin and do an elliptical wedge resection. Purulent material came out and suction was used and irrigation with 1.5 liters of saline was done to the cavity. Hemostasis was obtained with Bovie electrocautery. Interdigitation did note that there was no undrained areas of collection and a VAC sponge was placed. Plastic was placed and a track pad was placed. The patient was noted to have good suction without leak. The patient tolerated the procedure with no operative complications. All lap and instrument counts were correct at the end of the procedure. The patient was extubated and taken to the PACU. MD SIMI Michaels/luz marina , 04:11 PM , 04:22 PM
[2018-07-02 17:49] LABS: Hemoglobin A1c 6.2 % (4.3-6.0)
[2018-07-02] MEDS: Latanoprost 0.005% Opth Drops 2.5 ML Bottle EACH EYE SCH (21:02)
[2018-07-03] MEDS: Vancomycin Inj 2,000 MG in Sodium Chlor 0.9% Inj 500 ML IV.SIG SCH ×2 (00:17→15:59)
--- NOTE | 2018-07-03 07:39 | P.PNGS ---
Subjective Patient reports: no new complaints, feels better, pain is less, afebrile Physical Exam Vital signs: Vital Signs 07/02/18 08:00 07/02/18 10:00 07/02/18 11:00 Temperature 98.1 F Pulse Rate 66 Respiratory Rate 19 16 16 Blood Pressure 123/64 Pulse Oximetry 96 07/02/18 12:00 07/02/18 16:30 07/02/18 20:00 Temperature 97.6 F 97.9 F Pulse Rate 80 Respiratory Rate 16 16 18 Blood Pressure 144/69 H 158/78 H Pulse Oximetry 96 95 07/02/18 22:00 07/03/18 00:00 Temperature 97.4 F L 96.5 F L Pulse Rate 65 63 Respiratory Rate 20 20 Blood Pressure 109/63 104/58 L Pulse Oximetry 94 L 95 Intake & Output 07/02/18 07/03/18 07/03/18 18:59 06:59 18:59 Intake Total 2943 / 2943 2392 / 2392 Output Total 800 / 800 Balance 2143 / 2143 2392 / 2392 Weight 105.2 kg Intake: IV 1883 / 1883 2392 / 2392 NS Inj 1,000 ML @ 125 mls/hr IV 913 / 913 1872 / 1872 .CONT .Q8H STORM Rx#:[id number] LR 1000 mL Inj 1,000 ML @ 30 450 / 450 mls/hr IV.SIG .Q24H STORM Rx#: [id number] Vancomycin Inj 2,000 MG In NS 520 / 520 520 / 520 Inj 500 ML @ 250 mls/hr IV.SIG Q18H STORM Rx#:[id number] Oral 360 / 360 Anesthesia Amount 600 / 600 Other 100 / 100 Output: Urine 800 / 800 Other: Mode Setting Left Posterior Thigh Continuous Date of Last Bowel Movement 06/29/18 06/29/18 - Routine Respiratory Exam Present: CTA bilaterally - Routine Cardiovascular Exam Present: RRR - Routine Abdominal Exam Present: soft - Routine Extremities Exam Present: tenderness (left posterior thigh vac with good sxn) Results - Labs 07/02/18 05:00 06/30/18 05:18 Laboratory Results - last 24 hr 07/02/18 07/02/18 07/02/18 05:00 05:00 13:16 POC Glucose 101 Hemoglobin A1c 6.2 H Vancomycin Trough 10.9 H - Imaging Imaging: ITS Impressions Pelvis CT 06/29/18 18:22 CONCLUSION: Left buttock cellulitis without abscess. Soft Tissue Ultrasound 06/30/18 00:00 CONCLUSION: 1. Mixed echogenic masslike area most likely phlegmonous infectious process without focal pocket of abscess. Assessment and Plan - Assessment (1) Cellulitis and abscess of left lower extremity Code(s): L03.116 - Cellulitis of left lower limb; L02.416 - Cutaneous abscess of left lower limb Status: Acute Plan: 67 year old male with LEFT inferior buttocks abscess -s/p incision and drainage with Wound Vac placement doing well -reg diet -Explained the procedure, all questions answered I left message with as well - plan for vac removal friday -
--- NOTE | 2018-07-03 08:47 | P.PN ---
Subjective Interval history: Follow-up for left buttock abscess status post I&D. Patient is currently doing well. When he went to the restroom, he noticed a lot of fluid came out from the wound VAC site. No fever or chills. His pain is very minimal. Physical Exam Vital signs: Vital Signs 07/02/18 10:00 07/02/18 11:00 07/02/18 12:00 Temperature 97.6 F Pulse Rate 80 Respiratory Rate 16 16 16 Blood Pressure 144/69 H Pulse Oximetry 96 07/02/18 16:30 07/02/18 20:00 07/02/18 22:00 Temperature 97.9 F 97.4 F L Pulse Rate 65 Respiratory Rate 16 18 20 Blood Pressure 158/78 H 109/63 Pulse Oximetry 95 94 L 07/03/18 00:00 Temperature 96.5 F L Pulse Rate 63 Respiratory Rate 20 Blood Pressure 104/58 L Pulse Oximetry 95 Intake & Output 07/02/18 07/03/18 07/03/18 18:59 06:59 18:59 Intake Total 2943 / 2943 2392 / 2392 Output Total 800 / 800 Balance 2143 / 2143 2392 / 2392 Weight 105.2 kg Intake: IV 1883 / 1883 2392 / 2392 NS Inj 1,000 ML @ 125 mls/hr IV 913 / 913 1872 / 1872 .CONT .Q8H STORM Rx#:[id number] LR 1000 mL Inj 1,000 ML @ 30 450 / 450 mls/hr IV.SIG .Q24H STORM Rx#: [id number] Vancomycin Inj 2,000 MG In NS 520 / 520 520 / 520 Inj 500 ML @ 250 mls/hr IV.SIG Q18H STORM Rx#:[id number] Oral 360 / 360 Anesthesia Amount 600 / 600 Other 100 / 100 Output: Urine 800 / 800 Other: Mode Setting Left Posterior Thigh Continuous Date of Last Bowel Movement 06/29/18 06/29/18 Narrative: GENERAL: Alert, oriented x3, NAD. SKIN: Warm and dry. HEAD: Normocephalic. EYES: No scleral icterus. No injection or drainage. NECK: Supple, trachea midline. No JVD or lymphadenopathy. CARDIOVASCULAR: Regular rate and rhythm without murmurs, gallops, or rubs. RESPIRATORY: Breath sounds equal bilaterally. No accessory muscle use. GASTROINTESTINAL: Abdomen soft, non-tender, nondistended. Wound vac in place on the left buttock. MUSCULOSKELETAL: No cyanosis, or edema. BACK: Nontender without obvious deformity. No CVA tenderness. Results - Labs CBC & Chem 7: 07/02/18 05:00 06/30/18 05:18 Laboratory Results - last 24 hr 07/02/18 07/02/18 07/02/18 05:00 05:00 13:16 POC Glucose 101 Hemoglobin A1c 6.2 H Vancomycin Trough 10.9 H Microbiology 06/29/18 17:41 Blood - Peripheral Aerobic Blood Culture - Preliminary No growth in 3 days 06/29/18 17:41 Blood - Peripheral Anaerobic Blood Culture - Preliminary No growth in 3 days 06/29/18 17:41 Blood - Peripheral Aerobic Blood Culture - Preliminary No growth in 3 days 06/29/18 17:41 Blood - Peripheral Anaerobic Blood Culture - Preliminary No growth in 3 days Assessment and Plan - Plan Mr. Pedro is a pleasant 67-year-old male with a history of hypertension who presents to the emergency department on 06/29/2018 due to left buttock area abscess. Patient had mild fever as well as chills. He also had drainage as well. Left buttock abscess Continue vancomycin pharmacy to dose. Appreciate input from general surgery for an evaluation. I&D on 07/02/2018. Continue pain management with acetaminophen, Percocet and morphine. Bowel regimen Surgery is planning to remove wound VAC on 07/05/2018. Possible discharge on the same day. Hypertension Hx of Glaucoma Continue losartan 50 mg p.o. daily, latanoprost eyedrops. Full code. Heparin 5000 unit every 12 hours.
[2018-07-03] MEDS: Docusate Sodium 100 MG Capsule PO SCH ×2 (09:01→21:52)
[2018-07-03] MEDS: Sod Chloride 0.9% Inj 1,000 ML IV.CONT SCH ×3 (11:04→21:53)
[2018-07-03] MEDS: Latanoprost 0.005% Opth Drops 2.5 ML Bottle EACH EYE SCH (21:52)
[2018-07-04] MEDS: Sod Chloride 0.9% Inj 1,000 ML IV.CONT SCH (07:18)
--- NOTE | 2018-07-04 07:19 | P.PN ---
Subjective Interval history: Follow-up for left buttock abscess status post I&D. And is currently doing well. Denies any chest pain, shortness of breath, fever or chills. He is sitting in his chair. Pain is well controlled. Physical Exam Vital signs: Vital Signs 07/03/18 08:00 07/03/18 11:45 07/03/18 16:00 Temperature 96.2 F L 96.8 F L 98.0 F Pulse Rate 61 54 L 78 Respiratory Rate 17 17 18 Blood Pressure 125/68 129/76 130/65 Pulse Oximetry 96 97 97 07/03/18 20:00 07/04/18 00:00 Temperature 97.4 F L 96.5 F L Pulse Rate 55 L 54 L Respiratory Rate 20 20 Blood Pressure 120/63 136/74 Pulse Oximetry 97 99 Intake & Output 07/03/18 07/04/18 07/04/18 18:59 06:59 18:59 Intake Total 760 / 760 1480 / 1480 1120 / 1120 Output Total 200 / 200 Balance 760 / 760 1280 / 1280 1120 / 1120 Weight 105.6 kg Intake: IV 520 / 520 1000 / 1000 1000 / 1000 NS Inj 1,000 ML @ 125 mls/hr IV 1000 / 1000 1000 / 1000 .CONT .Q8H STORM Rx#:[id number] LR 1000 mL Inj 1,000 ML @ 30 0 / 0 mls/hr IV.SIG .Q24H STORM Rx#: [id number] Vancomycin Inj 2,000 MG In NS 520 / 520 Inj 500 ML @ 250 mls/hr IV.SIG Q18H STORM Rx#:[id number] Oral 240 / 240 480 / 480 120 / 120 Output: Urine 200 / 200 Other: Mode Setting Left Posterior Thigh Continuous Continuous # Voids 2 Date of Last Bowel Movement 06/29/18 Narrative: GENERAL: Alert, oriented x3, NAD. SKIN: Warm and dry. HEAD: Normocephalic. EYES: No scleral icterus. No injection or drainage. NECK: Supple, trachea midline. No JVD or lymphadenopathy. CARDIOVASCULAR: Regular rate and rhythm without murmurs, gallops, or rubs. RESPIRATORY: Breath sounds equal bilaterally. No accessory muscle use. GASTROINTESTINAL: Abdomen soft, non-tender, nondistended. Wound vac in place on the left buttock. MUSCULOSKELETAL: No cyanosis, or edema. BACK: Nontender without obvious deformity. No CVA tenderness. Results - Labs CBC & Chem 7: 07/02/18 05:00 06/30/18 05:18 Microbiology 07/02/18 15:44 Abscess - Buttock Wound Culture - Preliminary S. aureus MRSA 06/29/18 17:41 Blood - Peripheral Aerobic Blood Culture - Preliminary No growth in 4 days 06/29/18 17:41 Blood - Peripheral Anaerobic Blood Culture - Preliminary No growth in 4 days 06/29/18 17:41 Blood - Peripheral Aerobic Blood Culture - Preliminary No growth in 4 days 06/29/18 17:41 Blood - Peripheral Anaerobic Blood Culture - Preliminary No growth in 4 days - Imaging Pelvis CT 06/29/18 18:22 CONCLUSION: Left buttock cellulitis without abscess. Soft Tissue Ultrasound 06/30/18 00:00 CONCLUSION: 1. Mixed echogenic masslike area most likely phlegmonous infectious process without focal pocket of abscess. Assessment and Plan - Plan Mr. Pedro is a pleasant 67-year-old male with a history of hypertension who presents to the emergency department on 06/29/2018 due to left buttock area abscess. Patient had mild fever as well as chills. He also had drainage as well. Left buttock abscess due to MRSA Continue vancomycin pharmacy to dose. Appreciate input from general surgery for an evaluation. I&D on 07/02/2018. Continue pain management with acetaminophen, Percocet and morphine. Bowel regimen Surgery is planning to remove wound VAC on 07/05/2018. Possible discharge on the same day. -Will consider Bactrim DS for PO coverage. Hypertension Hx of Glaucoma Continue losartan 50 mg p.o. daily, latanoprost eyedrops. Full code. Heparin 5000 unit every 12 hours (on hold). Ambulation.
--- NOTE | 2018-07-04 08:28 | P.DCO ---
- Home Health Nursing Order: Medical education, Signs/symptoms of disease process, Medication education-adverse effect, Wound care and dressing changes, Nursing assessment with vital signs - Home Health Aide Order: To assist in: Bathing and personal care, wire photo operator and meal prep - Case Management Consult Yes - Certification I have seen patient Aydin Pedro on 07/04/18. My clinical findings support the need for the requested home health care services because: Limited mobility due to disease progression, Deconditioned with increased weakness, Limited ability to care for self, Impaired cognition/judgement, High risk of falls, Infection with risk of complications I certify that my clinical findings support that this patient is homebound because: Post-op weakness, Unsteady gait/balance, Unsafe to leave home unassisted, Need for psychosocial assistance, Non-ambulatory: confined to bed or chair, Unable to use public transportation
[2018-07-04] MEDS: Docusate Sodium 100 MG Capsule PO SCH ×2 (08:40→20:18)
[2018-07-04] MEDS: Vancomycin Inj 2,000 MG in Sodium Chlor 0.9% Inj 500 ML IV.SIG SCH ×2 (09:20→20:18)
[2018-07-04] MEDS: Latanoprost 0.005% Opth Drops 2.5 ML Bottle EACH EYE SCH (20:18)
[2018-07-04 20:20] VITALS: RESP 20
[2018-07-05] MEDS: Vancomycin Inj 2,000 MG in Sodium Chlor 0.9% Inj 500 ML IV.SIG SCH (03:12)
--- NOTE | 2018-07-05 08:08 | P.PN ---
Subjective Interval history: Follow-up for left buttock abscess status post I&D. Patient is doing well. No acute concerns. No fever, chills. Physical Exam Vital signs: Vital Signs 07/04/18 08:00 07/04/18 12:00 07/04/18 16:00 Temperature 98.4 F 97.8 F 97.4 F L Pulse Rate 61 63 64 Respiratory Rate 18 20 21 Blood Pressure 160/78 H 132/75 Pulse Oximetry 97 99 95 07/04/18 20:00 07/05/18 00:00 Temperature 97.6 F 98.1 F Pulse Rate 65 70 Respiratory Rate 20 20 Blood Pressure 142/72 H 158/84 H Pulse Oximetry 97 98 Intake & Output 07/04/18 07/05/18 07/05/18 18:59 06:59 18:59 Intake Total 2360 / 2360 1970 / 1970 Output Total 932 / 932 1000 / 1000 Balance 1428 / 1428 970 / 970 Weight 105.3 kg Intake: IV 1520 / 1520 1490 / 1490 NS Inj 1,000 ML @ 125 mls/hr IV 1000 / 1000 .CONT .Q8H STORM Rx#:[id number] Vancomycin Inj 2,000 MG In NS 520 / 520 1040 / 1040 Inj 500 ML @ 250 mls/hr IV.SIG Q18H STORM Rx#:[id number] Oral 840 / 840 480 / 480 Output: Urine 900 / 900 1000 / 1000 Stool 2 / 2 Wound Vac Amount 30 / 30 Left Posterior Thigh 30 / 30 Other: Mode Setting Left Posterior Thigh Continuous Continuous Date of Last Bowel Movement 07/04/18 07/04/18 Narrative: GENERAL: SKIN: Warm and dry. HEAD: Normocephalic. EYES: No scleral icterus. No injection or drainage. NECK: Supple, trachea midline. No JVD or lymphadenopathy. CARDIOVASCULAR: Regular rate and rhythm without murmurs, gallops, or rubs. RESPIRATORY: Breath sounds equal bilaterally. No accessory muscle use. GASTROINTESTINAL: Abdomen soft, non-tender, nondistended. MUSCULOSKELETAL: No cyanosis, or edema. BACK: Nontender without obvious deformity. No CVA tenderness. Results - Labs CBC & Chem 7: 07/02/18 05:00 07/05/18 05:52 Laboratory Results - last 24 hr 07/05/18 05:52 Creatinine 0.91 Estimated GFR 83 L Microbiology 06/29/18 17:41 Blood - Peripheral Aerobic Blood Culture - Final No growth in 5 days 06/29/18 17:41 Blood - Peripheral Anaerobic Blood Culture - Final No growth in 5 days 06/29/18 17:41 Blood - Peripheral Aerobic Blood Culture - Final No growth in 5 days 06/29/18 17:41 Blood - Peripheral Anaerobic Blood Culture - Final No growth in 5 days 07/02/18 15:44 Abscess - Buttock Wound Culture - Final S. aureus MRSA Assessment and Plan - Plan Mr. Pedro is a pleasant 67-year-old male with a history of hypertension who presents to the emergency department on 06/29/2018 due to left buttock area abscess. Patient had mild fever as well as chills. He also had drainage as well. Left buttock abscess due to MRSA Continue vancomycin pharmacy to dose. Appreciate input from general surgery for an evaluation. I&D on 07/02/2018. Continue pain management with acetaminophen, Percocet and morphine. Bowel regimen Surgery is planning to remove wound VAC on 07/05/2018. Possible discharge on the same day. -Will consider Bactrim DS for PO coverage. Hypertension Hx of Glaucoma Continue losartan 50 mg p.o. daily, latanoprost eyedrops. Full code. Heparin 5000 unit every 12 hours (on hold). Ambulation.
[2018-07-05 08:33] VITALS: BP 147/69; PULSE 60; TEMP 98.5; O2SAT 97
[2018-07-05] MEDS: Docusate Sodium 100 MG Capsule PO SCH (09:01)
--- NOTE | 2018-07-05 16:03 | P.DS ---
Date of admission: 06/29/18 19:44 Primary care physician: William Durán MD Attending physician on discharge: Shashi Jansen Anticipated date of discharge: 07/05/18 Brief History from admission: Mr. Pedro is a pleasant 67-year-old male with a history of hypertension who presented to the emergency department on 06/29/2018 due to left- sided buttock abscess, swelling. Patient reports onset of his symptoms on 2017. He reports fever around 100 F and chills as well. He did notice some drainage at home. Denies any chest pain, shortness of breath, abdominal pain, cough. Denies any changes in bowel or bladder habits. Past medical history: Hypertension, glaucoma, hemorrhoids, cataract Past surgical history: Cataract surgery, cholecystectomy, kidney stone removal Social history: Patient uses E cigarettes and denies using alcohol or illicit drugs. Family history: Mother had breast cancer. Patient update on day of discharge: Follow-up for left buttock abscess status post I&D. Patient is doing well. No acute concerns. No fever, chills. DS: Medications - Discharge Medications Prescriptions: doxycycline hyclate 100 mg PO BID #28 tab oxycodone-acetaminophen 1 tab PO Q6H PRN #12 tab PRN Reason: Pain 5-10 DS: Summary Hospital Course: Mr. Pedro is a pleasant 67-year-old male with a history of hypertension who presents to the emergency department on 06/29/2018 due to left buttock area abscess. Patient had mild fever as well as chills. He also had drainage as well. Left buttock abscess due to MRSA Continued vancomycin pharmacy to dose. Appreciate input from general surgery for an evaluation. I&D on 07/02/2018. Continue pain management with acetaminophen, Percocet and morphine. Bowel regimen I discussed with surgeon manager retention Dr. Latham who recommended discontinuing wound VAC and continuing saline wet-to-dry dressing. -We will discharge patient on doxycycline for 2 weeks. Patient will follow up with surgeon Dr. Bowser in 1-2 weeks. -Home health arranged. Hypertension Hx of Glaucoma Continue losartan 50 mg p.o. daily, latanoprost eyedrops. - Time Spent with Patient Total time spent providing and/or coordinating discharge services: Less than 30 minutes - Quality: VTE Deep Vein Thrombosis/Pulmonary Embolism Present on Admission: No Exam Vital signs: Vital Signs 07/04/18 20:00 07/05/18 00:00 07/05/18 08:00 Temperature 97.6 F 98.1 F 98.5 F Pulse Rate 65 70 60 Respiratory Rate 20 20 20 Blood Pressure 142/72 H 158/84 H 147/69 H Pulse Oximetry 97 98 97 Intake & Output 07/04/18 07/05/18 07/05/18 18:59 06:59 18:59 Intake Total 2360 / 2360 1970 / 1970 240 / 240 Output Total 932 / 932 1000 / 1000 Balance 1428 / 1428 970 / 970 240 / 240 Weight 105.3 kg Intake: IV 1520 / 1520 1490 / 1490 NS Inj 1,000 ML @ 125 mls/hr IV 1000 / 1000 .CONT .Q8H STORM Rx#:[id number] Vancomycin Inj 2,000 MG In NS 520 / 520 1040 / 1040 Inj 500 ML @ 250 mls/hr IV.SIG Q18H STORM Rx#:[id number] Oral 840 / 840 480 / 480 240 / 240 Output: Urine 900 / 900 1000 / 1000 Stool 2 / 2 Wound Vac Amount 30 / 30 Left Posterior Thigh 30 / 30 Other: Mode Setting Left Posterior Thigh Continuous Continuous Date of Last Bowel Movement 07/04/18 07/04/18 Narrative: GENERAL: Alert, NAD. SKIN: Warm and dry. HEAD: Normocephalic. EYES: No scleral icterus. No injection or drainage. NECK: Supple, trachea midline. No JVD or lymphadenopathy. CARDIOVASCULAR: Regular rate and rhythm without murmurs, gallops, or rubs. RESPIRATORY: Breath sounds equal bilaterally. No accessory muscle use. GASTROINTESTINAL: Abdomen soft, non-tender, nondistended. Wound vac was on, later removed by RN. MUSCULOSKELETAL: No cyanosis, or edema. BACK: Nontender without obvious deformity. No CVA tenderness. Results Procedures completed during hospitalization: I&D, Wound vac placement. Labs on day of discharge: Labs from last 24 hours 07/05/18 05:52 Creatinine 0.91 Estimated GFR 83 L - Impressions ITS Impressions Pelvis CT 06/29/18 18:22 CONCLUSION: Left buttock cellulitis without abscess. Soft Tissue Ultrasound 06/30/18 00:00 CONCLUSION: 1. Mixed echogenic masslike area most likely phlegmonous infectious process without focal pocket of abscess. Discharge Plan - Discharge Disposition Patient Disposition: Disch W/Home Health Service - Discharge Condition Condition: Stable - Discharge Order Discharge Orders: Discharge Order (Routine); Ordered 07/05/18 Ordered By: Shashi Jansen - Discharge Details Anticipated Discharge Date: 07/05/18 Discharge Comment: Daily dressing change with saline wet to dry. Home health nurse can do it. Avoid sun exposure too much while on Doxycycline. - Physicians Team Primary Care Provider: William Durán Attending Provider: Shashi Jansen Other Providers: Haider Bowser MD
== END 2018-07-05 13:36 | disposition home health service (06) ==
LOC: PHED 15:34 → PHEDA 19:44 → PH3 20:45
PROVIDERS: ADMIT Hospitalist; ATTEND Hospitalist